=== PATIENT | male | born 1950 | race Caucasian/White ===

== ENCOUNTER 2020-05-16 19:43 | Inpatient (IN) ==
[2020-05-16 22:03] LABS: Basophils % 0.1 %; Eosinophils # 0.1 K/mcL (0.0-0.6); Hematocrit 41.1 % (37.5-50.1); Hemoglobin 13.6 g/dL (12.9-16.9); Immature Granulocytes % 0.7 % (0-4); Lymphocytes # 1.7 K/mcL (0.6-4.6); Lymphocytes % 16.5 %; Mean Corpuscular HGB Conc 33.1 g/dL (31.6-35.5); Mean Corpuscular Hemoglobin 28.6 pg (28.0-33.3); Mean Corpuscular Volume 86.3 fL (83.0-100.0); Mean Platelet Volume 9.9 fL (9.4-12.4); Monocytes # 0.5 K/mcL (0.0-1.3); Monocytes % 4.9 %; Platelet Count 179 K/mcL (140-400); Red Blood Count 4.76 M/mcL (4.19-5.50); Red Cell Distribution Width 17.1 % (11.5-14.5); Segmented Neutrophils % 76.8 %; White Blood Count 10.4 K/mcL (4.3-11.1)
[2020-05-16 22:21] LABS: Bilirubin,Urine Negative (Negative); Blood,Urine Negative (Negative); Clarity,Urine Clear (Clear); Color,Urine Yellow (Yellow); Glucose,Urine (UA) Normal (Normal); Ketones,Urine Negative (Negative); Leukocyte Esterase,Urine Negative (Negative); Nitrite,Urine Negative (Negative); Protein,Urine Trace mg/dL (Neg-Trace); Specific Gravity,Urine 1.022 (1.010-1.025); Urobilinogen,Urine Normal (Normal)
[2020-05-16 22:24] LABS: BUN/Creatinine Ratio 28 (6-26); Blood Urea Nitrogen 31 mg/dL (8-23); Calcium 8.2 mg/dL (8.6-10.3); Carbon Dioxide 30 mEq/L (23-29); Chloride 100 mEq/L (98-107); Glucose 92 mg/dL (70-105); Osmolality,Calculated 296 (280-300); Potassium 3.2 mEq/L (3.5-5.1); Sodium 140 mEq/L (136-145); eGFR For African Americans > 60 (> 60); eGFR For Non-African Americans > 60 (> 60)
[2020-05-16] MEDS ORDERED: Ipratropium/Albuterol Neb 3 ML IH ONE (22:44)
[2020-05-16] MEDS ORDERED: MetroNIDAZOLE 500 MG/100 ML 500 MG/100 ML BAG IVPB ONE (22:45)
[2020-05-16 23:02] LABS: Troponin I 0.06 ng/mL (< 0.04)
[2020-05-17] MEDS ORDERED: Ondansetron 4 MG/2 ML VIAL IVP PRN (00:28)
[2020-05-17] MEDS ORDERED: Naloxone 0.4 MG/ML INJ IVP PRN (00:28)
[2020-05-17] MEDS ORDERED: Albuterol 2.5 MG/3 ML NEBULIZER IH PRN (02:38)
[2020-05-17] MEDS: Melatonin 3 MG TABLET PO PRN ×2 (02:53→21:35)
[2020-05-17] MEDS ORDERED: Potassium Chloride 40 MEQ, Lidocaine 1% 2 ML in 0.9 % Sodium Chloride 500 ML IVPB ONE ×2 (03:15→11:32)
[2020-05-17] MEDS: Ipratropium/Albuterol Neb 3 ML IH SCH ×4 (03:20→21:15)
[2020-05-17 04:50] LABS: Hemoglobin 13.5 g/dL (12.9-16.9); Mean Corpuscular HGB Conc 32.1 g/dL (31.6-35.5); Mean Platelet Volume 10.5 fL (9.4-12.4); Platelet Count 203 K/mcL (140-400); Red Blood Count 4.83 M/mcL (4.19-5.50); Red Cell Distribution Width 17.3 % (11.5-14.5); White Blood Count 10.4 K/mcL (4.3-11.1)
[2020-05-17 05:13] LABS: Alanine Aminotransferase 19 Units/L (7-52); Albumin 3.1 g/dL (3.5-5.7); Albumin/Globulin Ratio 1.3 (1.1-2.2); Alkaline Phosphatase 56 Units/L (34-104); Aspartate Amino Transferase 13 Units/L (13-39); BUN/Creatinine Ratio 25 (6-26); Bilirubin,Total 0.6 mg/dL (0.3-1.0); Blood Urea Nitrogen 26 mg/dL (8-23); Calcium 8.3 mg/dL (8.6-10.3); Carbon Dioxide 31 mEq/L (23-29); Chloride 99 mEq/L (98-107); Globulin 2.4 g/dL (2.4-3.5); Glucose 112 mg/dL (70-105); Magnesium 1.7 mg/dL (1.6-2.6); Osmolality,Calculated 292 (280-300); Phosphorous 2.6 mg/dL (2.7-4.5); Potassium 3.1 mEq/L (3.5-5.1); Sodium 138 mEq/L (136-145); Total Protein 5.5 g/dL (6.4-8.9); Troponin I 0.05 ng/mL (< 0.04); eGFR For African Americans > 60 (> 60); eGFR For Non-African Americans > 60 (> 60)
[2020-05-17] MEDS ORDERED: MethylPREDNISolone 40 MG/ML VIAL IVP SCH (06:00)
[2020-05-17] MEDS ORDERED: *HR* Heparin 5,000 UNIT/ML VIAL SQ SCH (06:00)
[2020-05-17] MEDS: MetroNIDAZOLE 500 MG/100 ML 500 MG/100 ML BAG IVPB SCH ×2 (08:43→16:27)
[2020-05-17] MEDS ORDERED: Ketorolac 30 MG/ML VIAL IVP PRN (09:07)
[2020-05-17] MEDS ORDERED: Perflutren Lipid Microsphere 1.3 ML in 0.9 % Sodium Chloride 8.7 ML IVP PRN (11:34)
[2020-05-17] MEDS: carvediloL 6.25 MG TABLET PO SCH (16:24)
[2020-05-17] MEDS ORDERED: Vancomycin 1,500 MG/265 ML IV.SOLN IVPB ONE (17:00)
[2020-05-17] MEDS: Budesonide/Formoterol 160/4.5 1 PUFF INH IH SCH (21:15)
[2020-05-17] MEDS: traZODone 50 MG TABLET PO SCH (21:35)
[2020-05-18] MEDS: MetroNIDAZOLE 500 MG/100 ML 500 MG/100 ML BAG IVPB SCH ×2 (00:42→09:56)
[2020-05-18] MEDS: Ipratropium/Albuterol Neb 3 ML IH SCH ×4 (03:40→23:03)
[2020-05-18 05:05] LABS: Basophils % 0.1 %; Eosinophils # 0.1 K/mcL (0.0-0.6); Eosinophils % 0.7 %; Hematocrit 38.5 % (37.5-50.1); Hemoglobin 12.5 g/dL (12.9-16.9); Immature Granulocytes % 0.4 % (0-4); Lymphocytes # 1.4 K/mcL (0.6-4.6); Mean Corpuscular HGB Conc 32.5 g/dL (31.6-35.5); Mean Corpuscular Hemoglobin 28.3 pg (28.0-33.3); Mean Corpuscular Volume 87.1 fL (83.0-100.0); Monocytes # 0.4 K/mcL (0.0-1.3); Monocytes % 4.4 %; Neutrophils # 7.3 K/mcL (1.6-8.9); Platelet Count 174 K/mcL (140-400); Red Blood Count 4.42 M/mcL (4.19-5.50); Red Cell Distribution Width 17.2 % (11.5-14.5); Segmented Neutrophils % 79.4 %; White Blood Count 9.2 K/mcL (4.3-11.1)
[2020-05-18 05:26] LABS: BUN/Creatinine Ratio 24 (6-26); Blood Urea Nitrogen 19 mg/dL (8-23); Calcium 8.3 mg/dL (8.6-10.3); Carbon Dioxide 26 mEq/L (23-29); Chloride 103 mEq/L (98-107); Glucose 108 mg/dL (70-105); Osmolality,Calculated 283 (280-300); Potassium 4.1 mEq/L (3.5-5.1); Sodium 135 mEq/L (136-145); eGFR For African Americans > 60 (> 60); eGFR For Non-African Americans > 60 (> 60)
[2020-05-18] MEDS ORDERED: Vancomycin 1,250 MG/262.5 ML IV.SOLN IVPB SCH (07:00)
[2020-05-18] MEDS: carvediloL 6.25 MG TABLET PO SCH (07:50)
[2020-05-18] MEDS: BuPROPion XL (24 HR) 150 MG TABLET PO SCH (07:50)
[2020-05-18] MEDS: Aspirin 81 MG TAB.CHEW PO SCH (07:51)
[2020-05-18] MEDS: predniSONE 10 MG TABLET PO SCH (12:26)
[2020-05-18] MEDS: metroNIDAZOLE 500 MG TABLET PO SCH ×2 (16:10→20:35)
[2020-05-18] MEDS: Torsemide 20 MG TABLET PO SCH (16:10)
[2020-05-18] MEDS: Melatonin 3 MG TABLET PO PRN (20:34)
[2020-05-18] MEDS: traZODone 50 MG TABLET PO SCH (20:35)
[2020-05-18] MEDS: Budesonide/Formoterol 160/4.5 1 PUFF INH IH SCH (23:04)
[2020-05-19] MEDS: Ipratropium/Albuterol Neb 3 ML IH SCH ×4 (04:09→22:09)
[2020-05-19 07:51] LABS: Basophils % 0.1 %; Eosinophils # 0.1 K/mcL (0.0-0.6); Eosinophils % 0.7 %; Hematocrit 39.7 % (37.5-50.1); Hemoglobin 12.6 g/dL (12.9-16.9); Immature Granulocytes % 0.6 % (0-4); Lymphocytes # 1.5 K/mcL (0.6-4.6); Lymphocytes % 16.1 %; Mean Corpuscular HGB Conc 31.7 g/dL (31.6-35.5); Mean Corpuscular Hemoglobin 27.6 pg (28.0-33.3); Mean Corpuscular Volume 87.1 fL (83.0-100.0); Mean Platelet Volume 10.3 fL (9.4-12.4); Monocytes # 0.5 K/mcL (0.0-1.3); Monocytes % 4.9 %; Neutrophils # 7.4 K/mcL (1.6-8.9); Platelet Count 171 K/mcL (140-400); Red Blood Count 4.56 M/mcL (4.19-5.50); Red Cell Distribution Width 17.5 % (11.5-14.5); Segmented Neutrophils % 77.6 %; White Blood Count 9.5 K/mcL (4.3-11.1)
[2020-05-19 08:10] LABS: BUN/Creatinine Ratio 22 (6-26); Blood Urea Nitrogen 25 mg/dL (8-23); Calcium 7.7 mg/dL (8.6-10.3); Carbon Dioxide 28 mEq/L (23-29); Chloride 103 mEq/L (98-107); Glucose 83 mg/dL (70-105); Osmolality,Calculated 288 (280-300); Potassium 3.6 mEq/L (3.5-5.1); Sodium 137 mEq/L (136-145); eGFR For African Americans > 60 (> 60); eGFR For Non-African Americans > 60 (> 60)
[2020-05-19] MEDS: predniSONE 10 MG TABLET PO SCH (09:43)
[2020-05-19] MEDS: metroNIDAZOLE 500 MG TABLET PO SCH ×3 (09:43→22:15)
[2020-05-19] MEDS: BuPROPion XL (24 HR) 150 MG TABLET PO SCH (09:43)
[2020-05-19] MEDS: Torsemide 20 MG TABLET PO SCH ×2 (09:43→18:17)
[2020-05-19] MEDS: Aspirin 81 MG TAB.CHEW PO SCH (09:43)
[2020-05-19] MEDS: Vancomycin 1,250 MG/262.5 ML IV.SOLN IVPB SCH (09:44)
[2020-05-19] MEDS: Acetaminophen 325 MG TABLET PO PRN (10:52)
[2020-05-19] MEDS: Vancomycin 1,500 MG/265 ML IV.SOLN IVPB SCH (11:37)
[2020-05-19] MEDS: Budesonide/Formoterol 160/4.5 1 PUFF INH IH SCH (22:09)
[2020-05-19] MEDS: traZODone 50 MG TABLET PO SCH (22:15)
[2020-05-20] MEDS: Ipratropium/Albuterol Neb 3 ML IH SCH ×4 (03:26→22:48)
[2020-05-20 03:39] LABS: Basophils % 0.1 %; Eosinophils % 0.1 %; Hematocrit 37.7 % (37.5-50.1); Hemoglobin 12.2 g/dL (12.9-16.9); Immature Granulocytes % 0.3 % (0-4); Lymphocytes # 0.9 K/mcL (0.6-4.6); Lymphocytes % 9.5 %; Mean Corpuscular HGB Conc 32.4 g/dL (31.6-35.5); Mean Corpuscular Hemoglobin 28.2 pg (28.0-33.3); Mean Corpuscular Volume 87.3 fL (83.0-100.0); Mean Platelet Volume 10.6 fL (9.4-12.4); Monocytes # 0.4 K/mcL (0.0-1.3); Neutrophils # 7.7 K/mcL (1.6-8.9); Platelet Count 165 K/mcL (140-400); Red Blood Count 4.32 M/mcL (4.19-5.50); Red Cell Distribution Width 17.5 % (11.5-14.5)
[2020-05-20 03:57] LABS: BUN/Creatinine Ratio 22 (6-26); Blood Urea Nitrogen 26 mg/dL (8-23); Calcium 7.8 mg/dL (8.6-10.3); Carbon Dioxide 25 mEq/L (23-29); Chloride 102 mEq/L (98-107); Glucose 155 mg/dL (70-105); Osmolality,Calculated 292 (280-300); Potassium 3.4 mEq/L (3.5-5.1); Sodium 137 mEq/L (136-145); eGFR For African Americans > 60 (> 60); eGFR For Non-African Americans > 60 (> 60)
[2020-05-20] MEDS: predniSONE 10 MG TABLET PO SCH (09:56)
[2020-05-20] MEDS: BuPROPion XL (24 HR) 150 MG TABLET PO SCH (09:57)
[2020-05-20] MEDS: Aspirin 81 MG TAB.CHEW PO SCH (09:57)
[2020-05-20] MEDS: Torsemide 20 MG TABLET PO SCH ×2 (09:57→17:53)
[2020-05-20] MEDS: metroNIDAZOLE 500 MG TABLET PO SCH ×3 (09:57→22:14)
[2020-05-20] MEDS: Vancomycin 1,500 MG/265 ML IV.SOLN IVPB SCH (10:20)
[2020-05-20] MEDS: traZODone 50 MG TABLET PO SCH (22:14)
[2020-05-20] MEDS: Acetaminophen 325 MG TABLET PO PRN (22:34)
[2020-05-20] MEDS: Budesonide/Formoterol 160/4.5 1 PUFF INH IH SCH (22:48)
[2020-05-21] MEDS: Ipratropium/Albuterol Neb 3 ML IH SCH ×4 (03:50→22:14)
[2020-05-21] MEDS: Vancomycin 1,250 MG/262.5 ML IV.SOLN IVPB SCH (07:50)
[2020-05-21] MEDS: Aspirin 81 MG TAB.CHEW PO SCH (08:19)
[2020-05-21] MEDS: predniSONE 20 MG TABLET PO SCH (08:19)
[2020-05-21] MEDS: BuPROPion XL (24 HR) 150 MG TABLET PO SCH (08:19)
[2020-05-21] MEDS: metroNIDAZOLE 500 MG TABLET PO SCH ×3 (08:19→20:28)
[2020-05-21] MEDS: Torsemide 20 MG TABLET PO SCH ×2 (08:19→16:59)
[2020-05-21 09:46] LABS: Basophils % 0.1 %; Eosinophils # 0.1 K/mcL (0.0-0.6); Eosinophils % 0.8 %; Hematocrit 40.7 % (37.5-50.1); Hemoglobin 13.5 g/dL (12.9-16.9); Immature Granulocytes % 0.3 % (0-4); Lymphocytes % 22.3 %; Mean Corpuscular HGB Conc 33.2 g/dL (31.6-35.5); Mean Corpuscular Hemoglobin 28.7 pg (28.0-33.3); Mean Corpuscular Volume 86.4 fL (83.0-100.0); Mean Platelet Volume 10.5 fL (9.4-12.4); Monocytes # 0.4 K/mcL (0.0-1.3); Monocytes % 4.6 %; Neutrophils # 6.6 K/mcL (1.6-8.9); Platelet Count 184 K/mcL (140-400); Red Blood Count 4.71 M/mcL (4.19-5.50); Segmented Neutrophils % 71.9 %; White Blood Count 9.1 K/mcL (4.3-11.1)
[2020-05-21 09:47] LABS: BUN/Creatinine Ratio 23 (6-26); Blood Urea Nitrogen 27 mg/dL (8-23); Calcium 8.5 mg/dL (8.6-10.3); Carbon Dioxide 27 mEq/L (23-29); Chloride 101 mEq/L (98-107); Glucose 98 mg/dL (70-105); Osmolality,Calculated 289 (280-300); Potassium 3.4 mEq/L (3.5-5.1); Sodium 137 mEq/L (136-145); eGFR For African Americans > 60 (> 60); eGFR For Non-African Americans > 60 (> 60)
[2020-05-21] MEDS: Vancomycin 1,500 MG/265 ML IV.SOLN IVPB SCH (11:14)
[2020-05-21] MEDS: carvediloL 6.25 MG TABLET PO SCH (16:57)
[2020-05-21] MEDS: traZODone 50 MG TABLET PO SCH (20:28)
[2020-05-21] MEDS: Budesonide/Formoterol 160/4.5 1 PUFF INH IH SCH (22:14)
[2020-05-21] MEDS: Melatonin 3 MG TABLET PO PRN (23:11)
[2020-05-22] MEDS: Ipratropium/Albuterol Neb 3 ML IH SCH ×4 (04:05→21:41)
[2020-05-22 05:43] LABS: Hemoglobin 12.2 g/dL (12.9-16.9); Mean Corpuscular Hemoglobin 28.5 pg (28.0-33.3); Mean Corpuscular Volume 86.4 fL (83.0-100.0); Platelet Count 177 K/mcL (140-400); Red Blood Count 4.28 M/mcL (4.19-5.50); Red Cell Distribution Width 18.1 % (11.5-14.5); Segmented Neutrophils % 64.5 %; White Blood Count 7.5 K/mcL (4.3-11.1)
[2020-05-22 05:44] LABS: Basophils % 0.4 %; Eosinophils # 0.1 K/mcL (0.0-0.6); Eosinophils % 1.3 %; Immature Granulocytes % 0.3 % (0-4); Lymphocytes % 26.3 %; Monocytes # 0.5 K/mcL (0.0-1.3); Monocytes % 7.2 %; Neutrophils # 4.8 K/mcL (1.6-8.9)
[2020-05-22 06:06] LABS: BUN/Creatinine Ratio 24 (6-26); Blood Urea Nitrogen 31 mg/dL (8-23); Calcium 7.9 mg/dL (8.6-10.3); Carbon Dioxide 31 mEq/L (23-29); Chloride 101 mEq/L (98-107); Glucose 92 mg/dL (70-105); Osmolality,Calculated 294 (280-300); Potassium 3.4 mEq/L (3.5-5.1); Sodium 139 mEq/L (136-145); eGFR For African Americans > 60 (> 60); eGFR For Non-African Americans 55 (> 60)
[2020-05-22] MEDS: BuPROPion XL (24 HR) 150 MG TABLET PO SCH (08:08)
[2020-05-22] MEDS: predniSONE 20 MG TABLET PO SCH (08:08)
[2020-05-22] MEDS: Torsemide 20 MG TABLET PO SCH ×2 (08:08→16:24)
[2020-05-22] MEDS: carvediloL 6.25 MG TABLET PO SCH ×2 (08:09→17:43)
[2020-05-22] MEDS: Aspirin 81 MG TAB.CHEW PO SCH (08:09)
[2020-05-22] MEDS: metroNIDAZOLE 500 MG TABLET PO SCH ×3 (08:09→20:40)
[2020-05-22] MEDS: Vancomycin 1,500 MG/265 ML IV.SOLN IVPB SCH (10:57)
[2020-05-22] MEDS ORDERED: predniSONE 10 MG TABLET PO ONE (14:00)
[2020-05-22] MEDS ORDERED: cefTRIAXone 2,000 MG in 0.9 % Sodium Chloride Mini Bag 100 ML IVPB SCH (16:00)
[2020-05-22] MEDS: cefTRIAXone 2,000 MG in Water for inj. (sterile) 20 ML IVP SCH (16:22)
[2020-05-22] MEDS ORDERED: Ipratropium/Albuterol Neb 3 ML IH PRN (17:28)
[2020-05-22] MEDS: traZODone 50 MG TABLET PO SCH (20:40)
[2020-05-22] MEDS: Budesonide/Formoterol 160/4.5 1 PUFF INH IH SCH (21:41)
[2020-05-23] MEDS: Ipratropium/Albuterol Neb 3 ML IH SCH ×4 (03:54→22:56)
[2020-05-23 05:44] LABS: Basophils % 0.2 %; Eosinophils # 0.1 K/mcL (0.0-0.6); Eosinophils % 0.9 %; Hematocrit 37.8 % (37.5-50.1); Hemoglobin 12.5 g/dL (12.9-16.9); Immature Granulocytes % 0.2 % (0-4); Lymphocytes # 1.5 K/mcL (0.6-4.6); Lymphocytes % 25.8 %; Mean Corpuscular HGB Conc 33.1 g/dL (31.6-35.5); Mean Corpuscular Volume 84.6 fL (83.0-100.0); Mean Platelet Volume 10.3 fL (9.4-12.4); Monocytes # 0.5 K/mcL (0.0-1.3); Monocytes % 9.1 %; Neutrophils # 3.7 K/mcL (1.6-8.9); Platelet Count 191 K/mcL (140-400); Red Blood Count 4.47 M/mcL (4.19-5.50); Red Cell Distribution Width 17.9 % (11.5-14.5); Segmented Neutrophils % 63.8 %; White Blood Count 5.8 K/mcL (4.3-11.1)
[2020-05-23 06:05] LABS: BUN/Creatinine Ratio 27 (6-26); Blood Urea Nitrogen 34 mg/dL (8-23); Calcium 7.7 mg/dL (8.6-10.3); Carbon Dioxide 28 mEq/L (23-29); Chloride 100 mEq/L (98-107); Glucose 110 mg/dL (70-105); Osmolality,Calculated 294 (280-300); Potassium 3.5 mEq/L (3.5-5.1); Sodium 138 mEq/L (136-145); eGFR For African Americans > 60 (> 60); eGFR For Non-African Americans 56 (> 60)
[2020-05-23 09:59] LABS: Vancomycin,Trough 11 mcg/mL (5-10)
[2020-05-23] MEDS: metroNIDAZOLE 500 MG TABLET PO SCH ×3 (10:19→22:50)
[2020-05-23] MEDS: carvediloL 6.25 MG TABLET PO SCH ×2 (10:19→18:30)
[2020-05-23] MEDS: BuPROPion XL (24 HR) 150 MG TABLET PO SCH (10:19)
[2020-05-23] MEDS: Torsemide 20 MG TABLET PO SCH ×2 (10:20→18:30)
[2020-05-23] MEDS: predniSONE 20 MG TABLET PO SCH (10:20)
[2020-05-23] MEDS: Aspirin 81 MG TAB.CHEW PO SCH (10:20)
[2020-05-23] MEDS ORDERED: Lidocaine Viscous Oral Soln 15 ML SOLUTION MM PRN (10:51)
[2020-05-23] MEDS ORDERED: *HR* Midazolam HCl 5 MG/5 ML VIAL IVP PRN (10:52)
[2020-05-23] MEDS ORDERED: 0.9 % Sodium Chloride 500 ML IVC ONE (10:52)
[2020-05-23] MEDS: *HR* FentaNYL (PF) 100 MCG/2 ML VIAL IVP PRN ×2 (11:15→11:30)
[2020-05-23 11:58] LABS: Creatine Kinase 70 Units/L (30-223)
[2020-05-23] MEDS: DAPTOmycin 500 MG in 0.9 % Sodium Chloride 100 ML IVPB SCH (12:35)
[2020-05-23] MEDS ORDERED: Aminoglycoside Consult 1 EACH MC ONE (16:33)
[2020-05-23] MEDS: cefTRIAXone 2,000 MG in Water for inj. (sterile) 20 ML IVP SCH (18:29)
[2020-05-23] MEDS: traZODone 50 MG TABLET PO SCH (22:50)
[2020-05-23] MEDS: Budesonide/Formoterol 160/4.5 1 PUFF INH IH SCH (22:56)
[2020-05-24] MEDS: Ipratropium/Albuterol Neb 3 ML IH SCH ×3 (04:35→15:55)
[2020-05-24 05:26] LABS: Basophils % 0.3 %; Eosinophils # 0.1 K/mcL (0.0-0.6); Eosinophils % 1.2 %; Hematocrit 38.9 % (37.5-50.1); Hemoglobin 12.8 g/dL (12.9-16.9); Immature Granulocytes % 0.8 % (0-4); Lymphocytes # 1.9 K/mcL (0.6-4.6); Lymphocytes % 31.6 %; Mean Corpuscular HGB Conc 32.9 g/dL (31.6-35.5); Mean Corpuscular Hemoglobin 28.4 pg (28.0-33.3); Mean Corpuscular Volume 86.3 fL (83.0-100.0); Mean Platelet Volume 10.6 fL (9.4-12.4); Monocytes # 0.6 K/mcL (0.0-1.3); Monocytes % 9.3 %; Neutrophils # 3.4 K/mcL (1.6-8.9); Platelet Count 219 K/mcL (140-400); Red Blood Count 4.51 M/mcL (4.19-5.50); Red Cell Distribution Width 18.2 % (11.5-14.5); Segmented Neutrophils % 56.8 %; White Blood Count 5.9 K/mcL (4.3-11.1)
[2020-05-24 05:51] LABS: BUN/Creatinine Ratio 26 (6-26); Blood Urea Nitrogen 34 mg/dL (8-23); Calcium 7.6 mg/dL (8.6-10.3); Carbon Dioxide 30 mEq/L (23-29); Chloride 98 mEq/L (98-107); Glucose 79 mg/dL (70-105); Osmolality,Calculated 287 (280-300); Potassium 3.6 mEq/L (3.5-5.1); Sodium 135 mEq/L (136-145); eGFR For African Americans > 60 (> 60); eGFR For Non-African Americans 54 (> 60)
[2020-05-24] MEDS: Acetaminophen 325 MG TABLET PO PRN (11:15)
[2020-05-24] MEDS: predniSONE 20 MG TABLET PO SCH (11:16)
[2020-05-24] MEDS: Torsemide 20 MG TABLET PO SCH (11:16)
[2020-05-24] MEDS: BuPROPion XL (24 HR) 150 MG TABLET PO SCH (11:16)
[2020-05-24] MEDS: metroNIDAZOLE 500 MG TABLET PO SCH (11:17)
[2020-05-24] MEDS: carvediloL 6.25 MG TABLET PO SCH (11:17)
[2020-05-24] MEDS: Aspirin 81 MG TAB.CHEW PO SCH (11:18)
[2020-05-24] MEDS: DAPTOmycin 500 MG in 0.9 % Sodium Chloride 100 ML IVPB SCH (13:49)
[2020-05-24 14:30] VITALS: BP 116/65
== END 2020-05-24 16:34 | disposition home or self-care (01) | DRG 392 ==
LOC: 3ANU 19:43 → EMEROOARM 19:43 → SUATTDRO 23:32 → 3ANU 05-17 00:19
PROVIDERS: ADMIT Internal Medicine; ATTEND Student in an Organized Health Care Education/Training Program

== ENCOUNTER 2021-01-06 14:34 | Observation (INO) ==
[2021-01-06 15:22] LABS: Basophils # 0.1 K/mcL (0.0-0.2); Basophils % 0.8 %; Eosinophils # 0.4 K/mcL (0.0-0.6); Eosinophils % 2.5 %; Hematocrit 39.1 % (37.5-50.1); Hemoglobin 12.7 g/dL (12.9-16.9); Immature Granulocytes % 0.4 % (0-4); Lymphocytes # 1.2 K/mcL (0.6-4.6); Lymphocytes % 8.5 %; Mean Corpuscular HGB Conc 32.5 g/dL (31.6-35.5); Mean Corpuscular Hemoglobin 26.6 pg (28.0-33.3); Mean Platelet Volume 10.4 fL (9.4-12.4); Monocytes % 7.3 %; Neutrophils # 11.2 K/mcL (1.6-8.9); Platelet Count 336 K/mcL (140-400); Red Blood Count 4.77 M/mcL (4.19-5.50); Red Cell Distribution Width 16.6 % (11.5-14.5); Segmented Neutrophils % 80.5 %; White Blood Count 13.9 K/mcL (4.3-11.1)
[2021-01-06 15:38] LABS: BUN/Creatinine Ratio 24 (6-26); Blood Urea Nitrogen 37 mg/dL (8-23); Calcium 9.2 mg/dL (8.6-10.3); Carbon Dioxide 30 mEq/L (23-29); Chloride 99 mEq/L (98-107); Glucose 116 mg/dL (70-105); Osmolality,Calculated 294 (280-300); Potassium 4.8 mEq/L (3.5-5.1); Sodium 137 mEq/L (136-145); eGFR For African Americans 54 (> 60); eGFR For Non-African Americans 44 (> 60)
[2021-01-06 15:39] LABS: Troponin I < 0.03 ng/mL (< 0.04)
[2021-01-06] MEDS ORDERED: Ondansetron ODT 4 MG TAB.RAPDIS SL PRN (17:55)
[2021-01-06] MEDS ORDERED: Naloxone 0.4 MG/ML INJ IVP PRN (17:55)
[2021-01-06] MEDS ORDERED: Melatonin 3 MG TABLET PO PRN (17:55)
[2021-01-06] MEDS ORDERED: Perflutren Lipid Microsphere 1.3 ML in 0.9 % Sodium Chloride 8.7 ML IVP PRN (17:55)
[2021-01-06] MEDS ORDERED: Mag Hydrox/Al Hydrox/Simeth 30 ML UDC PO PRN (17:55)
[2021-01-06] MEDS ORDERED: MOM Conc 10 ML UD.LIQ PO PRN (17:55)
[2021-01-06] MEDS ORDERED: Furosemide 40 MG/4 ML VIAL IVP ONE (18:09)
[2021-01-06] MEDS: predniSONE 20 MG TABLET PO SCH (19:50)
[2021-01-06] MEDS: polyethylene glycoL 3350 17 GM POWD.PACK PO SCH (19:51)
[2021-01-06] MEDS ORDERED: carvediloL 6.25 MG TABLET PO SCH (21:00)
[2021-01-06] MEDS: Ipratropium/Albuterol Neb 3 ML IH SCH (23:11)
[2021-01-07 03:49] LABS: Hematocrit 40.8 % (37.5-50.1); Hemoglobin 13.4 g/dL (12.9-16.9); Mean Corpuscular HGB Conc 32.8 g/dL (31.6-35.5); Mean Corpuscular Hemoglobin 26.4 pg (28.0-33.3); Mean Corpuscular Volume 80.5 fL (83.0-100.0); Mean Platelet Volume 9.9 fL (9.4-12.4); Platelet Count 343 K/mcL (140-400); Red Blood Count 5.07 M/mcL (4.19-5.50); Red Cell Distribution Width 16.5 % (11.5-14.5); White Blood Count 14.9 K/mcL (4.3-11.1)
[2021-01-07 04:10] LABS: Albumin 4.2 g/dL (3.5-5.7); Albumin/Globulin Ratio 1.2 (1.1-2.2); Bilirubin,Total 0.5 mg/dL (0.3-1.0); Calcium 9.4 mg/dL (8.6-10.3); Chol/HDL Ratio 3.5 (0-4.9); Globulin 3.6 g/dL (2.4-3.5); Potassium 4.2 mEq/L (3.5-5.1); Total Protein 7.8 g/dL (6.4-8.9)
[2021-01-07] MEDS: Ipratropium/Albuterol Neb 3 ML IH SCH ×4 (04:19→22:52)
[2021-01-07] MEDS: *HR* Enoxaparin 40 MG/0.4 ML SYRINGE SQ SCH (04:49)
[2021-01-07] MEDS ORDERED: Regadenoson 0.4 MG/5 ML SYRINGE IVP ONE (07:26)
[2021-01-07] MEDS ORDERED: Nitroglycerin 0.4 MG TAB.SUBL SL PRN (07:35)
[2021-01-07] MEDS: Aspirin 81 MG TAB.CHEW PO SCH (10:03)
[2021-01-07] MEDS: predniSONE 20 MG TABLET PO SCH (10:03)
[2021-01-07] MEDS: polyethylene glycoL 3350 17 GM POWD.PACK PO SCH (10:03)
[2021-01-07] MEDS: GuaiFENesin/Dextromethorphan TABLET PO SCH ×2 (12:02→20:05)
[2021-01-07] MEDS: Azithromycin 500 MG in 0.9 % Sodium Chloride 250 ML IVPB SCH (12:02)
[2021-01-07 13:25] LABS: Adenovirus Not Detected (Not Detect); Coronavirus 229E Not Detected (Not Detect); Coronavirus HKU1 Not Detected (Not Detect); Coronavirus NL63 Not Detected (Not Detect); Coronavirus OC43 Not Detected (Not Detect); Human Metapneumovirus Not Detected (Not Detect); Human Rhinovirus/Enterovirus Not Detected (Not Detect); SARS-CoV-2 Not Detected (Not Detect)
[2021-01-07 13:26] LABS: Bordetella Pertussis Not Detected (Not Detect); Chlamydophila pneumoniae Not Detected (Not Detect); Influenza A Subtype 2009 H1 Not Detected (Not Detect); Influenza B Not Detected (Not Detect); Mycoplasma pneumoniae Not Detected (Not Detect); Parainfluenza Virus 1 Not Detected (Not Detect); Parainfluenza Virus 2 Not Detected (Not Detect); Parainfluenza Virus 3 Not Detected (Not Detect); Parainfluenza Virus 4 Not Detected (Not Detect); Respiratory Syncytial Virus Not Detected (Not Detect)
[2021-01-07] MEDS: carvediloL 6.25 MG TABLET PO SCH (17:09)
[2021-01-07] MEDS: Acetaminophen 325 MG TABLET PO PRN (18:34)
[2021-01-08] MEDS: Ipratropium/Albuterol Neb 3 ML IH SCH ×4 (04:08→22:21)
[2021-01-08] MEDS: *HR* Enoxaparin 40 MG/0.4 ML SYRINGE SQ SCH (04:22)
[2021-01-08 07:10] LABS: Hemoglobin 12.6 g/dL (12.9-16.9); Mean Corpuscular HGB Conc 33.2 g/dL (31.6-35.5); Mean Corpuscular Hemoglobin 26.6 pg (28.0-33.3); Mean Corpuscular Volume 80.2 fL (83.0-100.0); Mean Platelet Volume 10.2 fL (9.4-12.4); Platelet Count 329 K/mcL (140-400); Red Blood Count 4.74 M/mcL (4.19-5.50); Red Cell Distribution Width 16.8 % (11.5-14.5); White Blood Count 13.8 K/mcL (4.3-11.1)
[2021-01-08] MEDS: Aspirin 81 MG TAB.CHEW PO SCH (08:00)
[2021-01-08] MEDS: polyethylene glycoL 3350 17 GM POWD.PACK PO SCH (08:00)
[2021-01-08] MEDS: carvediloL 6.25 MG TABLET PO SCH ×2 (08:01→17:07)
[2021-01-08] MEDS: predniSONE 20 MG TABLET PO SCH (08:01)
[2021-01-08] MEDS: GuaiFENesin/Dextromethorphan TABLET PO SCH ×2 (08:01→19:52)
[2021-01-08 09:22] LABS: Alanine Aminotransferase 15 Units/L (7-52); Albumin 3.9 g/dL (3.5-5.7); Albumin/Globulin Ratio 1.2 (1.1-2.2); Alkaline Phosphatase 75 Units/L (34-104); Aspartate Amino Transferase 14 Units/L (13-39); BUN/Creatinine Ratio 29 (6-26); Bilirubin,Total 0.4 mg/dL (0.3-1.0); Blood Urea Nitrogen 32 mg/dL (8-23); Calcium 8.9 mg/dL (8.6-10.3); Carbon Dioxide 28 mEq/L (23-29); Chloride 99 mEq/L (98-107); Globulin 3.3 g/dL (2.4-3.5); Glucose 104 mg/dL (70-105); Osmolality,Calculated 285 (280-300); Potassium 3.5 mEq/L (3.5-5.1); Sodium 134 mEq/L (136-145); Total Protein 7.2 g/dL (6.4-8.9); eGFR For African Americans > 60 (> 60); eGFR For Non-African Americans > 60 (> 60)
[2021-01-08] MEDS: Azithromycin 500 MG in 0.9 % Sodium Chloride 250 ML IVPB SCH (11:24)
[2021-01-09] MEDS: Ipratropium/Albuterol Neb 3 ML IH SCH ×2 (04:10→10:37)
[2021-01-09 05:26] LABS: Hematocrit 35.6 % (37.5-50.1); Hemoglobin 11.8 g/dL (12.9-16.9); Mean Corpuscular HGB Conc 33.1 g/dL (31.6-35.5); Mean Corpuscular Hemoglobin 26.5 pg (28.0-33.3); Mean Corpuscular Volume 79.8 fL (83.0-100.0); Mean Platelet Volume 10.1 fL (9.4-12.4); Platelet Count 311 K/mcL (140-400); Red Blood Count 4.46 M/mcL (4.19-5.50); Red Cell Distribution Width 16.6 % (11.5-14.5); White Blood Count 13.5 K/mcL (4.3-11.1)
[2021-01-09 05:42] LABS: Alanine Aminotransferase 15 Units/L (7-52); Albumin 3.6 g/dL (3.5-5.7); Albumin/Globulin Ratio 1.2 (1.1-2.2); Alkaline Phosphatase 70 Units/L (34-104); Aspartate Amino Transferase 13 Units/L (13-39); BUN/Creatinine Ratio 31 (6-26); Bilirubin,Total 0.3 mg/dL (0.3-1.0); Blood Urea Nitrogen 29 mg/dL (8-23); Calcium 8.1 mg/dL (8.6-10.3); Carbon Dioxide 23 mEq/L (23-29); Chloride 102 mEq/L (98-107); Globulin 2.9 g/dL (2.4-3.5); Glucose 140 mg/dL (70-105); Osmolality,Calculated 282 (280-300); Potassium 3.7 mEq/L (3.5-5.1); Sodium 132 mEq/L (136-145); Total Protein 6.5 g/dL (6.4-8.9); eGFR For African Americans > 60 (> 60); eGFR For Non-African Americans > 60 (> 60)
[2021-01-09] MEDS: *HR* Enoxaparin 40 MG/0.4 ML SYRINGE SQ SCH (06:10)
[2021-01-09 06:40] VITALS: BP 125/67
[2021-01-09] MEDS: Aspirin 81 MG TAB.CHEW PO SCH (09:06)
[2021-01-09] MEDS: Acetaminophen 325 MG TABLET PO PRN (09:06)
[2021-01-09] MEDS: carvediloL 6.25 MG TABLET PO SCH (09:07)
[2021-01-09] MEDS: predniSONE 20 MG TABLET PO SCH (09:07)
[2021-01-09] MEDS: polyethylene glycoL 3350 17 GM POWD.PACK PO SCH (09:08)
[2021-01-09] MEDS: GuaiFENesin/Dextromethorphan TABLET PO SCH (09:19)
[2021-01-09] MEDS: Azithromycin 500 MG in 0.9 % Sodium Chloride 250 ML IVPB SCH (11:04)
== END 2021-01-09 13:20 ==
LOC: 3BNU 14:34 → EMEROOARM 14:34 → SUATTDRO 18:00 → 3BNU 18:03
PROVIDERS: ADMIT Internal Medicine; ATTEND Registered Nurse

== ENCOUNTER 2021-12-04 22:33 | Inpatient (IN) ==
[2021-12-04 23:43] LABS: Basophils % 0.3 %; Eosinophils # 0.1 K/mcL (0.0-0.6); Eosinophils % 0.5 %; Hematocrit 42.5 % (37.5-50.1); Hemoglobin 13.7 g/dL (12.9-16.9); Immature Granulocytes % 0.8 % (0-4); Lymphocytes # 0.9 K/mcL (0.6-4.6); Lymphocytes % 8.9 %; Mean Corpuscular HGB Conc 32.2 g/dL (31.6-35.5); Mean Corpuscular Hemoglobin 27.6 pg (28.0-33.3); Mean Corpuscular Volume 85.5 fL (83.0-100.0); Mean Platelet Volume 10.3 fL (9.4-12.4); Monocytes # 0.9 K/mcL (0.0-1.3); Monocytes % 8.9 %; Neutrophils # 8.4 K/mcL (1.6-8.9); Platelet Count 280 K/mcL (140-400); Red Blood Count 4.97 M/mcL (4.19-5.50); Red Cell Distribution Width 18.5 % (11.5-14.5); Segmented Neutrophils % 80.6 %; White Blood Count 10.5 K/mcL (4.3-11.1)
[2021-12-04 23:53] LABS: VBG HCO3 33 mEq/L (21-27); VBG PCO2 59 mmHg (41-51); VBG PH 7.36 pH Units (7.32-7.42); VBG PO2 67 mmHg (25-50)
[2021-12-05 00:24] LABS: Albumin 3.5 g/dL (3.5-5.7); Albumin/Globulin Ratio 1.2 (1.1-2.2); Bilirubin,Direct 0.1 mg/dL (0.0-0.2); Bilirubin,Indirect 0.2 mg/dL (0.0-1.0); Bilirubin,Total 0.3 mg/dL (0.3-1.0); Magnesium 2.1 mg/dL (1.6-2.6); Potassium 4.1 mEq/L (3.5-5.1); Total Protein 6.5 g/dL (6.4-8.9); Troponin I 0.04 ng/mL (< 0.04)
[2021-12-05] MEDS ORDERED: Isovue-370 500 ML BOTTLE IVP ONE (00:34)
[2021-12-05 01:37] LABS: Bilirubin,Urine Negative (Negative); Blood,Urine Negative (Negative); Clarity,Urine Clear (Clear); Color,Urine Light-Yellow (Yellow); Glucose,Urine (UA) Normal (Normal); Ketones,Urine Negative (Negative); Leukocyte Esterase,Urine Negative (Negative); Nitrite,Urine Negative (Negative); PH,Urine 5.5 pH Units (5.0-8.0); Protein,Urine Trace mg/dL (Neg-Trace); Urobilinogen,Urine Normal (Normal)
[2021-12-05 02:13] LABS: Influenza A PCR Negative (Negative); Influenza B PCR Negative (Negative); Resp. Syncytial Virus PCR Negative (Negative)
[2021-12-05 02:16] LABS: SARS-CoV-2 by PCR (In House) Positive (Negative)
[2021-12-05] MEDS ORDERED: Naloxone 0.4 MG/ML INJ IVP PRN (04:59)
[2021-12-05] MEDS ORDERED: Azithromycin 500 MG in 0.9 % Sodium Chloride 250 ML IVPB SCH (05:00)
[2021-12-05] MEDS ORDERED: D5% in 0.45% NACL 1,000 ML IVC SCH (05:15)
[2021-12-05] MEDS ORDERED: Albumin 25% 25gram/100mL 25 GM/100 ML IV.SOLN IVPB ONE (06:12)
[2021-12-05] MEDS: *HR* Enoxaparin 40 MG/0.4 ML SYRINGE SQ SCH (06:19)
[2021-12-05] MEDS ORDERED: *HR* LORazepam 2 MG/ML VIAL IVP PRN (06:32)
[2021-12-05] MEDS ORDERED: Furosemide 20 MG/2 ML VIAL IVP ONE (06:45)
[2021-12-05] MEDS ORDERED: Remdesivir 200 MG in 0.9 % Sodium Chloride 100 ML IVPB ONE (07:00)
[2021-12-05] MEDS ORDERED: Ipratropium 1 PUFF INHALER IH ONE (07:25)
[2021-12-05] MEDS: Ipratropium 1 PUFF INHALER IH SCH ×5 (08:12→23:43)
[2021-12-05] MEDS: Aspirin 81 MG TAB.CHEW PO SCH (09:44)
[2021-12-05] MEDS: carvediloL 6.25 MG TABLET PO SCH ×2 (09:44→16:17)
[2021-12-05] MEDS: Nicotine 7 MG PATCH.TD24 TD SCH (09:45)
[2021-12-05] MEDS ORDERED: Ipratropium 1 PUFF INHALER IH SCH (10:00)
[2021-12-05] MEDS ORDERED: Albuterol 2.5 MG/3 ML NEBULIZER IH SCH (10:00)
[2021-12-05] MEDS ORDERED: Acetaminophen 325 MG TABLET PO PRN (18:22)
[2021-12-05] MEDS: Melatonin 3 MG TABLET PO PRN (20:18)
[2021-12-05] MEDS: *HR* OxyCODONE Immed Rel 5 MG TABLET PO PRN (20:18)
[2021-12-06 01:35] LABS: Hematocrit 42.3 % (37.5-50.1); Hemoglobin 13.6 g/dL (12.9-16.9); Mean Corpuscular HGB Conc 32.2 g/dL (31.6-35.5); Mean Corpuscular Hemoglobin 27.5 pg (28.0-33.3); Mean Corpuscular Volume 85.5 fL (83.0-100.0); Mean Platelet Volume 10.4 fL (9.4-12.4); Platelet Count 264 K/mcL (140-400); Red Blood Count 4.95 M/mcL (4.19-5.50); Red Cell Distribution Width 18.4 % (11.5-14.5); White Blood Count 12.4 K/mcL (4.3-11.1)
[2021-12-06 01:51] LABS: BUN/Creatinine Ratio 33 (6-26); Blood Urea Nitrogen 36 mg/dL (8-23); Calcium 8.1 mg/dL (8.6-10.3); Carbon Dioxide 31 mEq/L (23-29); Chloride 100 mEq/L (98-107); Glucose 116 mg/dL (70-105); Osmolality,Calculated 297 (280-300); Sodium 139 mEq/L (136-145); eGFR For African Americans > 60 (> 60); eGFR For Non-African Americans > 60 (> 60)
[2021-12-06] MEDS: Ipratropium 1 PUFF INHALER IH SCH ×6 (04:27→23:52)
[2021-12-06] MEDS: *HR* Enoxaparin 40 MG/0.4 ML SYRINGE SQ SCH (05:25)
[2021-12-06] MEDS ORDERED: Remdesivir 100 MG in 0.9 % Sodium Chloride 100 ML IVPB SCH (07:00)
[2021-12-06] MEDS: Azithromycin 250 MG TABLET PO SCH (08:00)
[2021-12-06] MEDS: Aspirin 81 MG TAB.CHEW PO SCH (08:00)
[2021-12-06] MEDS: Nicotine 7 MG PATCH.TD24 TD SCH (08:01)
[2021-12-06] MEDS: carvediloL 6.25 MG TABLET PO SCH ×2 (08:07→16:52)
[2021-12-06] MEDS: *HR* OxyCODONE Immed Rel 5 MG TABLET PO PRN ×2 (08:08→18:15)
[2021-12-06] MEDS: Furosemide 40 MG/4 ML VIAL IVP SCH (13:39)
[2021-12-06] MEDS: Melatonin 3 MG TABLET PO PRN (19:38)
[2021-12-06] MEDS ORDERED: Menthol 1 EACH LOZENGE PO PRN (21:15)
[2021-12-07] MEDS: Ipratropium 1 PUFF INHALER IH SCH ×3 (04:00→11:43)
[2021-12-07 04:04] VITALS: TEMP 98.2
[2021-12-07] MEDS: *HR* Enoxaparin 40 MG/0.4 ML SYRINGE SQ SCH (05:44)
[2021-12-07] MEDS: *HR* OxyCODONE Immed Rel 5 MG TABLET PO PRN (05:45)
[2021-12-07 08:25] VITALS: BP 162/74; PULSE 62; O2SAT 93
[2021-12-07 09:14] LABS: Basophils % 0.2 %; Eosinophils # 0.1 K/mcL (0.0-0.6); Eosinophils % 0.5 %; Hematocrit 48.2 % (37.5-50.1); Immature Granulocytes % 0.3 % (0-4); Lymphocytes # 1.5 K/mcL (0.6-4.6); Lymphocytes % 11.5 %; Mean Corpuscular HGB Conc 32.6 g/dL (31.6-35.5); Mean Corpuscular Hemoglobin 27.8 pg (28.0-33.3); Mean Corpuscular Volume 85.5 fL (83.0-100.0); Mean Platelet Volume 10.9 fL (9.4-12.4); Monocytes # 1.3 K/mcL (0.0-1.3); Monocytes % 10.1 %; Platelet Count 281 K/mcL (140-400); Red Blood Count 5.64 M/mcL (4.19-5.50); Red Cell Distribution Width 19.1 % (11.5-14.5); Segmented Neutrophils % 77.4 %; White Blood Count 12.9 K/mcL (4.3-11.1)
[2021-12-07 09:15] LABS: Hemoglobin 15.7 g/dL (12.9-16.9)
[2021-12-07 09:28] LABS: BUN/Creatinine Ratio 29 (6-26); Blood Urea Nitrogen 30 mg/dL (8-23); Calcium 8.9 mg/dL (8.6-10.3); Carbon Dioxide 32 mEq/L (23-29); Chloride 103 mEq/L (98-107); Glucose 104 mg/dL (70-105); Osmolality,Calculated 290 (280-300); Potassium 3.8 mEq/L (3.5-5.1); Sodium 137 mEq/L (136-145); eGFR For African Americans > 60 (> 60); eGFR For Non-African Americans > 60 (> 60)
[2021-12-07] MEDS: carvediloL 6.25 MG TABLET PO SCH (09:35)
[2021-12-07] MEDS: Azithromycin 250 MG TABLET PO SCH (09:35)
[2021-12-07] MEDS: Aspirin 81 MG TAB.CHEW PO SCH (09:35)
[2021-12-07] MEDS: Nicotine 7 MG PATCH.TD24 TD SCH (09:36)
[2021-12-07] MEDS: Furosemide 40 MG/4 ML VIAL IVP SCH (09:36)
== END 2021-12-07 11:32 | DRG 177 ==
LOC: EMEROOARM 22:33 → 2NENU 22:33 → SUATTDRO 12-05 04:25 → 2NENU 12-05 05:24
PROVIDERS: ADMIT Internal Medicine; ATTEND Internal Medicine

== ENCOUNTER 2021-12-10 03:48 | Inpatient (IN) ==
[2021-12-10] MEDS ORDERED: methylPREDNISolone 125 MG/2 ML VIAL IVP ONE (04:04)
[2021-12-10] MEDS ORDERED: Ipratropium/Albuterol Neb 3 ML IH ONE (04:04)
[2021-12-10 04:31] LABS: Basophils % 0.2 %; Eosinophils % 0.2 %; Hematocrit 49.2 % (37.5-50.1); Hemoglobin 15.5 g/dL (12.9-16.9); Immature Granulocytes % 0.6 % (0-4); Lymphocytes % 6.1 %; Mean Corpuscular HGB Conc 31.5 g/dL (31.6-35.5); Mean Corpuscular Hemoglobin 27.2 pg (28.0-33.3); Mean Corpuscular Volume 86.3 fL (83.0-100.0); Mean Platelet Volume 11.2 fL (9.4-12.4); Monocytes # 1.2 K/mcL (0.0-1.3); Monocytes % 7.1 %; Neutrophils # 14.6 K/mcL (1.6-8.9); Platelet Count 287 K/mcL (140-400); Red Cell Distribution Width 19.1 % (11.5-14.5); Segmented Neutrophils % 85.8 %
[2021-12-10] MEDS: Albuterol 2.5 MG/3 ML NEBULIZER ONE (04:38)
[2021-12-10 04:52] LABS: BUN/Creatinine Ratio 31 (6-26); Blood Urea Nitrogen 43 mg/dL (8-23); Calcium 9.1 mg/dL (8.6-10.3); Carbon Dioxide 31 mEq/L (23-29); Chloride 100 mEq/L (98-107); Glucose 92 mg/dL (70-105); Osmolality,Calculated 296 (280-300); Potassium 4.1 mEq/L (3.5-5.1); Sodium 138 mEq/L (136-145); eGFR For African Americans > 60 (> 60); eGFR For Non-African Americans 51 (> 60)
[2021-12-10 04:55] LABS: Troponin I 0.04 ng/mL (< 0.04)
[2021-12-10 05:03] LABS: Influenza A PCR Negative (Negative); Influenza B PCR Negative (Negative); Resp. Syncytial Virus PCR Negative (Negative); SARS-CoV-2 by PCR (In House) Negative (Negative)
[2021-12-10 05:07] LABS: Bilirubin,Urine Negative (Negative); Blood,Urine Negative (Negative); Clarity,Urine Clear (Clear); Color,Urine Light-Yellow (Yellow); Glucose,Urine (UA) Normal (Normal); Ketones,Urine Negative (Negative); Leukocyte Esterase,Urine Negative (Negative); Nitrite,Urine Negative (Negative); PH,Urine 5.5 pH Units (5.0-8.0); Protein,Urine Negative (Neg-Trace); Specific Gravity,Urine 1.019 (1.010-1.025); Urobilinogen,Urine Normal (Normal)
[2021-12-10] MEDS ORDERED: Ondansetron 4 MG/2 ML VIAL IVP PRN (06:59)
[2021-12-10] MEDS ORDERED: Naloxone 0.4 MG/ML INJ IVP PRN (06:59)
[2021-12-10] MEDS ORDERED: *HR* LORazepam 2 MG/ML VIAL IVP PRN ×3 (07:17)
[2021-12-10] MEDS ORDERED: Albuterol 2.5 MG/3 ML NEBULIZER IH PRN (07:19)
[2021-12-10] MEDS ORDERED: Nicotine 21 MG PATCH.TD24 TD PRN (07:21)
[2021-12-10] MEDS ORDERED: 0.9 % Sodium Chloride 1,000 ML IVC SCH (07:45)
[2021-12-10 08:06] LABS: ABG Base Excess 6 mEq/L (-2 to 3); ABG HCO3 32 mEq/L (21-27); ABG Oxygen Saturation 90 % (95-98); ABG PCO2 50 mmHg (35-45); ABG PH 7.42 pH Units (7.32-7.45); ABG PO2 59 mmHg (85-104); ABG TCO2 34 mEq/L (20-26)
[2021-12-10] MEDS: Ipratropium/Albuterol Neb 3 ML IH SCH ×3 (10:23→20:51)
[2021-12-10] MEDS: Folic Acid 1 MG TABLET PO SCH ×2 (10:42→17:53)
[2021-12-10] MEDS: Azithromycin 500 MG in 0.9 % Sodium Chloride 250 ML IVPB SCH (10:42)
[2021-12-10] MEDS: Vitamin B Complex/Vit C/Vit E 1 EACH TABLET PO SCH ×2 (10:42→17:54)
[2021-12-10] MEDS: Thiamine (B-1) 100 MG TABLET PO SCH ×2 (10:42→17:54)
[2021-12-10] MEDS: predniSONE 20 MG TABLET PO SCH ×2 (10:42→17:53)
[2021-12-10] MEDS: *HR* Heparin 5,000 UNIT/ML VIAL SQ SCH (17:56)
[2021-12-10] MEDS: carvediloL 6.25 MG TABLET PO SCH (21:40)
[2021-12-11 01:29] LABS: Basophils % 0.1 %; Eosinophils % 0.1 %; Hematocrit 43.1 % (37.5-50.1); Hemoglobin 14.2 g/dL (12.9-16.9); Immature Granulocytes % 0.4 % (0-4); Lymphocytes % 5.6 %; Mean Corpuscular HGB Conc 32.9 g/dL (31.6-35.5); Mean Corpuscular Hemoglobin 27.7 pg (28.0-33.3); Mean Corpuscular Volume 84.2 fL (83.0-100.0); Mean Platelet Volume 11.1 fL (9.4-12.4); Monocytes # 1.6 K/mcL (0.0-1.3); Monocytes % 8.7 %; Neutrophils # 15.8 K/mcL (1.6-8.9); Platelet Count 253 K/mcL (140-400); Red Blood Count 5.12 M/mcL (4.19-5.50); Red Cell Distribution Width 18.9 % (11.5-14.5); Segmented Neutrophils % 85.1 %; White Blood Count 18.6 K/mcL (4.3-11.1)
[2021-12-11 01:45] LABS: BUN/Creatinine Ratio 32 (6-26); Blood Urea Nitrogen 32 mg/dL (8-23); Calcium 8.2 mg/dL (8.6-10.3); Carbon Dioxide 28 mEq/L (23-29); Chloride 104 mEq/L (98-107); Glucose 107 mg/dL (70-105); Osmolality,Calculated 295 (280-300); Potassium 4.2 mEq/L (3.5-5.1); Sodium 139 mEq/L (136-145); eGFR For African Americans > 60 (> 60); eGFR For Non-African Americans > 60 (> 60)
[2021-12-11] MEDS: Ipratropium/Albuterol Neb 3 ML IH SCH ×4 (04:27→20:48)
[2021-12-11] MEDS: *HR* Heparin 5,000 UNIT/ML VIAL SQ SCH ×2 (06:08→17:21)
[2021-12-11] MEDS ORDERED: Furosemide 20 MG/2 ML VIAL IVP SCH (09:00)
[2021-12-11] MEDS: carvediloL 6.25 MG TABLET PO SCH ×2 (09:34→20:03)
[2021-12-11] MEDS: Azithromycin 500 MG in 0.9 % Sodium Chloride 250 ML IVPB SCH (09:35)
[2021-12-11] MEDS: predniSONE 20 MG TABLET PO SCH (09:35)
[2021-12-11] MEDS: Vitamin B Complex/Vit C/Vit E 1 EACH TABLET PO SCH (09:35)
[2021-12-11] MEDS: Thiamine (B-1) 100 MG TABLET PO SCH (09:35)
[2021-12-11] MEDS: Folic Acid 1 MG TABLET PO SCH (09:35)
[2021-12-11] MEDS ORDERED: Furosemide 40 MG/4 ML VIAL IVP ONE (10:20)
[2021-12-11] MEDS: methylPREDNISolone 125 MG/2 ML VIAL IM SCH ×2 (11:21→17:21)
[2021-12-11] MEDS: Furosemide 20 MG/2 ML VIAL IVP SCH ×2 (17:14→20:03)
[2021-12-12] MEDS: Melatonin 3 MG TABLET PO PRN ×2 (01:48→20:14)
[2021-12-12] MEDS: Ipratropium/Albuterol Neb 3 ML IH SCH ×4 (04:37→20:07)
[2021-12-12] MEDS: *HR* Heparin 5,000 UNIT/ML VIAL SQ SCH ×2 (05:49→17:53)
[2021-12-12] MEDS: methylPREDNISolone 125 MG/2 ML VIAL IM SCH ×5 (05:50→23:16)
[2021-12-12 08:59] LABS: Basophils % 0.1 %; Hematocrit 48.9 % (37.5-50.1); Immature Granulocytes % 0.5 % (0-4); Lymphocytes # 0.4 K/mcL (0.6-4.6); Lymphocytes % 2.6 %; Mean Corpuscular HGB Conc 32.9 g/dL (31.6-35.5); Mean Corpuscular Hemoglobin 27.7 pg (28.0-33.3); Mean Platelet Volume 11.4 fL (9.4-12.4); Monocytes # 0.5 K/mcL (0.0-1.3); Monocytes % 3.2 %; Platelet Count 261 K/mcL (140-400); Red Blood Count 5.82 M/mcL (4.19-5.50); Red Cell Distribution Width 19.6 % (11.5-14.5); Segmented Neutrophils % 93.6 %
[2021-12-12 09:00] LABS: Hemoglobin 16.1 g/dL (12.9-16.9)
[2021-12-12] MEDS: Azithromycin 500 MG in 0.9 % Sodium Chloride 250 ML IVPB SCH (10:26)
[2021-12-12] MEDS: Thiamine (B-1) 100 MG TABLET PO SCH (10:27)
[2021-12-12] MEDS: Vitamin B Complex/Vit C/Vit E 1 EACH TABLET PO SCH (10:27)
[2021-12-12] MEDS: Folic Acid 1 MG TABLET PO SCH (10:27)
[2021-12-12] MEDS: carvediloL 6.25 MG TABLET PO SCH ×2 (10:28→20:15)
[2021-12-12] MEDS: Furosemide 20 MG/2 ML VIAL IVP SCH ×2 (10:28→20:14)
[2021-12-12 10:46] LABS: BUN/Creatinine Ratio 34 (6-26); Blood Urea Nitrogen 40 mg/dL (8-23); Carbon Dioxide 30 mEq/L (23-29); Chloride 99 mEq/L (98-107); Glucose 169 mg/dL (70-105); Magnesium 2.1 mg/dL (1.6-2.6); Osmolality,Calculated 298 (280-300); Potassium 3.8 mEq/L (3.5-5.1); Sodium 137 mEq/L (136-145); eGFR For African Americans > 60 (> 60); eGFR For Non-African Americans > 60 (> 60)
[2021-12-12] MEDS: Budesonide/Formoterol 80/4.5 1 PUFF INH IH SCH (20:07)
[2021-12-12] MEDS: Loratadine 10 MG TABLET PO SCH (20:14)
[2021-12-13] MEDS: Ipratropium/Albuterol Neb 3 ML IH SCH ×4 (03:54→21:23)
[2021-12-13] MEDS: methylPREDNISolone 125 MG/2 ML VIAL IM SCH ×3 (05:30→17:14)
[2021-12-13] MEDS: *HR* Heparin 5,000 UNIT/ML VIAL SQ SCH ×2 (05:30→17:14)
[2021-12-13 05:57] LABS: Basophils % 0.1 %; Hemoglobin 15.7 g/dL (12.9-16.9); Immature Granulocytes % 0.5 % (0-4); Lymphocytes # 0.5 K/mcL (0.6-4.6); Lymphocytes % 3.1 %; Mean Corpuscular HGB Conc 33.4 g/dL (31.6-35.5); Mean Corpuscular Volume 83.8 fL (83.0-100.0); Mean Platelet Volume 11.8 fL (9.4-12.4); Monocytes # 1.1 K/mcL (0.0-1.3); Monocytes % 6.6 %; Neutrophils # 14.3 K/mcL (1.6-8.9); Platelet Count 221 K/mcL (140-400); Red Blood Count 5.61 M/mcL (4.19-5.50); Red Cell Distribution Width 19.5 % (11.5-14.5); Segmented Neutrophils % 89.7 %
[2021-12-13 06:17] LABS: BUN/Creatinine Ratio 38 (6-26); Blood Urea Nitrogen 45 mg/dL (8-23); Calcium 8.1 mg/dL (8.6-10.3); Carbon Dioxide 25 mEq/L (23-29); Chloride 101 mEq/L (98-107); Glucose 143 mg/dL (70-105); Magnesium 2.1 mg/dL (1.6-2.6); Osmolality,Calculated 296 (280-300); Potassium 4.1 mEq/L (3.5-5.1); Sodium 136 mEq/L (136-145); eGFR For African Americans > 60 (> 60); eGFR For Non-African Americans > 60 (> 60)
[2021-12-13] MEDS: Azithromycin 250 MG TABLET PO SCH (08:24)
[2021-12-13] MEDS: carvediloL 6.25 MG TABLET PO SCH ×2 (08:25→20:23)
[2021-12-13] MEDS: Torsemide 20 MG TABLET PO SCH (08:25)
[2021-12-13] MEDS: Spironolactone 25 MG TABLET PO SCH (08:25)
[2021-12-13] MEDS: Aspirin 81 MG TAB.CHEW PO SCH (08:30)
[2021-12-13] MEDS: Thiamine (B-1) 100 MG TABLET PO SCH (08:32)
[2021-12-13] MEDS: Vitamin B Complex/Vit C/Vit E 1 EACH TABLET PO SCH (08:33)
[2021-12-13] MEDS: Folic Acid 1 MG TABLET PO SCH (08:33)
[2021-12-13] MEDS: Budesonide/Formoterol 80/4.5 1 PUFF INH IH SCH ×2 (11:53→21:23)
[2021-12-13] MEDS: Nitroglycerin 0.4 MG TAB.SUBL SL PRN ×2 (13:13→13:20)
[2021-12-13] MEDS: Loratadine 10 MG TABLET PO SCH (20:23)
[2021-12-14] MEDS: methylPREDNISolone 125 MG/2 ML VIAL IM SCH ×4 (00:30→17:31)
[2021-12-14] MEDS: Ipratropium/Albuterol Neb 3 ML IH SCH ×4 (04:11→19:49)
[2021-12-14] MEDS: *HR* Heparin 5,000 UNIT/ML VIAL SQ SCH (05:46)
[2021-12-14 06:48] LABS: Magnesium 2.3 mg/dL (1.6-2.6)
[2021-12-14] MEDS: Spironolactone 25 MG TABLET PO SCH (08:23)
[2021-12-14] MEDS: Aspirin 81 MG TAB.CHEW PO SCH (08:23)
[2021-12-14] MEDS: Torsemide 20 MG TABLET PO SCH (08:23)
[2021-12-14] MEDS: Azithromycin 250 MG TABLET PO SCH (08:23)
[2021-12-14] MEDS: Thiamine (B-1) 100 MG TABLET PO SCH (08:24)
[2021-12-14] MEDS: Vitamin B Complex/Vit C/Vit E 1 EACH TABLET PO SCH (08:24)
[2021-12-14] MEDS: Folic Acid 1 MG TABLET PO SCH (08:24)
[2021-12-14] MEDS: carvediloL 6.25 MG TABLET PO SCH ×2 (08:24→20:58)
[2021-12-14 10:00] LABS: Basophils % 0.1 %; Hematocrit 48.9 % (37.5-50.1); Hemoglobin 16.1 g/dL (12.9-16.9); Immature Granulocytes % 0.6 % (0-4); Lymphocytes # 0.3 K/mcL (0.6-4.6); Lymphocytes % 1.7 %; Mean Corpuscular HGB Conc 32.9 g/dL (31.6-35.5); Mean Corpuscular Hemoglobin 27.3 pg (28.0-33.3); Mean Platelet Volume 11.7 fL (9.4-12.4); Monocytes # 0.7 K/mcL (0.0-1.3); Monocytes % 4.6 %; Neutrophils # 13.9 K/mcL (1.6-8.9); Platelet Count 269 K/mcL (140-400); Red Blood Count 5.89 M/mcL (4.19-5.50); Red Cell Distribution Width 19.2 % (11.5-14.5)
[2021-12-14 10:19] LABS: BUN/Creatinine Ratio 37 (6-26); Blood Urea Nitrogen 43 mg/dL (8-23); Calcium 8.6 mg/dL (8.6-10.3); Carbon Dioxide 30 mEq/L (23-29); Chloride 97 mEq/L (98-107); Glucose 177 mg/dL (70-105); Magnesium 2.3 mg/dL (1.6-2.6); Osmolality,Calculated 299 (280-300); Potassium 3.7 mEq/L (3.5-5.1); Sodium 137 mEq/L (136-145); eGFR For African Americans > 60 (> 60); eGFR For Non-African Americans > 60 (> 60)
[2021-12-14] MEDS: Budesonide/Formoterol 80/4.5 1 PUFF INH IH SCH ×2 (10:39→19:48)
[2021-12-14] MEDS: Nitroglycerin 0.4 MG TAB.SUBL SL PRN ×3 (12:24→13:25)
[2021-12-14] MEDS ORDERED: *HR* Heparin 5,000 UNIT/ML VIAL IVP ONE (13:46)
[2021-12-14] MEDS ORDERED: *HR* Heparin 5,000 UNIT/ML VIAL IVP PRN ×2 (13:46)
[2021-12-14] MEDS ORDERED: Heparin 25,000UNIT/250ML 1/2NS 25,000 UNIT/250 ML IV.SOLN IVC SCH (14:00)
[2021-12-14 14:41] LABS: Hematocrit 48.3 % (37.5-50.1); Hemoglobin 15.7 g/dL (12.9-16.9); Mean Corpuscular HGB Conc 32.5 g/dL (31.6-35.5); Mean Corpuscular Hemoglobin 27.1 pg (28.0-33.3); Mean Corpuscular Volume 83.4 fL (83.0-100.0); Platelet Count 277 K/mcL (140-400); Red Blood Count 5.79 M/mcL (4.19-5.50); Red Cell Distribution Width 19.2 % (11.5-14.5)
[2021-12-14 15:10] LABS: Heparin anti-factor XA UFH < 0.04 IU/mL (0.30-0.70); Prothrombin Time 11.3 Seconds (9.4-12.1)
[2021-12-14] MEDS: methylPREDNISolone 125 MG/2 ML VIAL IVP SCH (17:54)
[2021-12-14] MEDS: Loratadine 10 MG TABLET PO SCH (20:58)
[2021-12-15] MEDS: methylPREDNISolone 125 MG/2 ML VIAL IVP SCH ×5 (00:09→23:20)
[2021-12-15] MEDS: Ipratropium/Albuterol Neb 3 ML IH SCH ×4 (03:47→20:28)
[2021-12-15] MEDS: Budesonide/Formoterol 80/4.5 1 PUFF INH IH SCH ×2 (08:31→20:29)
[2021-12-15] MEDS: Torsemide 20 MG TABLET PO SCH (09:04)
[2021-12-15] MEDS: Aspirin 81 MG TAB.CHEW PO SCH (09:04)
[2021-12-15] MEDS: carvediloL 6.25 MG TABLET PO SCH ×2 (09:04→20:04)
[2021-12-15] MEDS: Spironolactone 25 MG TABLET PO SCH (09:04)
[2021-12-15] MEDS: Vitamin B Complex/Vit C/Vit E 1 EACH TABLET PO SCH (09:04)
[2021-12-15 09:39] LABS: Basophils % 0.1 %; Hematocrit 47.5 % (37.5-50.1); Hemoglobin 15.4 g/dL (12.9-16.9); Immature Granulocytes % 0.6 % (0-4); Lymphocytes # 0.3 K/mcL (0.6-4.6); Lymphocytes % 1.7 %; Mean Corpuscular HGB Conc 32.4 g/dL (31.6-35.5); Mean Corpuscular Hemoglobin 26.9 pg (28.0-33.3); Monocytes # 0.6 K/mcL (0.0-1.3); Monocytes % 3.6 %; Neutrophils # 14.7 K/mcL (1.6-8.9); Platelet Count 235 K/mcL (140-400); Red Blood Count 5.72 M/mcL (4.19-5.50); Red Cell Distribution Width 18.6 % (11.5-14.5); White Blood Count 15.7 K/mcL (4.3-11.1)
[2021-12-15 09:58] LABS: BUN/Creatinine Ratio 40 (6-26); Blood Urea Nitrogen 44 mg/dL (8-23); Calcium 7.9 mg/dL (8.6-10.3); Carbon Dioxide 26 mEq/L (23-29); Chloride 100 mEq/L (98-107); Glucose 157 mg/dL (70-105); Magnesium 2.3 mg/dL (1.6-2.6); Osmolality,Calculated 294 (280-300); Potassium 3.9 mEq/L (3.5-5.1); Sodium 135 mEq/L (136-145); eGFR For African Americans > 60 (> 60); eGFR For Non-African Americans > 60 (> 60)
[2021-12-15] MEDS ORDERED: *HR* Heparin 10,000 UNIT/10 ML VIAL ONE (10:34)
[2021-12-15] MEDS ORDERED: Nitroglycerin 1,000 MCG/5 ML VIAL IV ONE (10:35)
[2021-12-15] MEDS ORDERED: 0.9 % Sodium Chloride 2,000 ML ONE (10:35)
[2021-12-15] MEDS ORDERED: ISOVUE-370 200 ML INFUS..BTL ONE (10:35)
[2021-12-15] MEDS ORDERED: *HR* Midazolam HCl 2 MG/2 ML VIAL ONE (10:37)
[2021-12-15] MEDS ORDERED: *HR* FentaNYL (PF) 100 MCG/2 ML VIAL ONE (10:37)
[2021-12-15] MEDS: Nitroglycerin 0.4 MG TAB.SUBL SL PRN ×3 (15:04→15:16)
[2021-12-15] MEDS: Isosorbide MONOnitrate (24 HR) 60 MG TAB.ER.24H PO SCH (15:15)
[2021-12-15] MEDS ORDERED: Isovue-370 500 ML BOTTLE IVP ONE (15:22)
[2021-12-15] MEDS: Morphine Sulfate 2 MG/ML SYRINGE IVP PRN ×2 (16:56→20:02)
[2021-12-15] MEDS: Loratadine 10 MG TABLET PO SCH (20:05)
[2021-12-16] MEDS: Ipratropium/Albuterol Neb 3 ML IH SCH ×3 (03:28→15:20)
[2021-12-16] MEDS: methylPREDNISolone 125 MG/2 ML VIAL IVP SCH ×2 (05:15→11:21)
[2021-12-16] MEDS ORDERED: *HR* Enoxaparin 40 MG/0.4 ML SYRINGE SQ SCH (06:00)
[2021-12-16 07:48] VITALS: BP 138/64; PULSE 78; TEMP 97.6; O2SAT 91
[2021-12-16] MEDS: Vitamin B Complex/Vit C/Vit E 1 EACH TABLET PO SCH (07:48)
[2021-12-16] MEDS: carvediloL 6.25 MG TABLET PO SCH (07:48)
[2021-12-16] MEDS: Isosorbide MONOnitrate (24 HR) 60 MG TAB.ER.24H PO SCH (07:48)
[2021-12-16] MEDS: Spironolactone 25 MG TABLET PO SCH (07:49)
[2021-12-16] MEDS: Torsemide 20 MG TABLET PO SCH (07:49)
[2021-12-16] MEDS: Aspirin 81 MG TAB.CHEW PO SCH (07:49)
[2021-12-16] MEDS: Morphine Sulfate 2 MG/ML SYRINGE IVP PRN (09:14)
[2021-12-16] MEDS ORDERED: *HR* LORazepam 2 MG/ML VIAL IVP ONE (10:22)
[2021-12-16] MEDS: Budesonide/Formoterol 80/4.5 1 PUFF INH IH SCH (11:37)
== END 2021-12-16 16:19 | DRG 286 ==
LOC: 2NENU 03:48 → EMEROOARM 03:48 → SUATTDRO 05:16 → 2NENU 06:02 → SUATTDRO 12-11 15:20
PROVIDERS: ADMIT Family Medicine; ATTEND Family Medicine